=== PATIENT | female | born 1975 | race Two or more races ===

== ENCOUNTER 2024-09-22 12:55 | Emergency (ER) | payer MEDICAID, OTHER ==
[~2024-09-22] VITALS: Ht 162.6 cm; Wt 63.5 kg
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
[2024-09-22 14:39] VITALS: BP 113/74; PULSE 99; RESP 18; TEMP 98.2; O2SAT 97
[2024-09-22] MEDS: KETOROLAC TROMETH 60MG/2ML VIAL IM ONE (14:54)
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
[2024-09-22] MEDS ORDERED: BACL10TA PO (15:47)
[2024-09-22] MEDS ORDERED: IBUP-1454 PO (15:47)
== END 2024-09-22 16:04 | disposition home or self-care (01) ==
LOC: ER 12:55 → EDSEX 12:55 → EDBD 12:55 → ER 16:03
DX: S66.912A Strain of unspecified muscle, fascia and tendon at wrist and hand level, left hand, initial encounter (principal); S66.911A Strain of unspecified muscle, fascia and tendon at wrist and hand level, right hand, initial encounter; S80.12XA Contusion of left lower leg, initial encounter; Z79.1 Long term (current) use of non-steroidal anti-inflammatories (NSAID); Z79.899 Other long term (current) drug therapy; V43.52XA Car driver injured in collision with other type car in traffic accident, initial encounter; Y93.89 Activity, other specified; Y92.410 Unspecified street and highway as the place of occurrence of the external cause; Y99.8 Other external cause status
CPT/HCPCS: 73120; 73130; 73590; 96372; 99284; J1885